=== PATIENT | female | born 1975 | race Caucasian/White ===

== ENCOUNTER 2016-12-07 12:16 | Observation (INO) ==
[2016-12-07 12:52] LABS: Basophils % 0.7 %; Eosinophils % 0.9 %; Hematocrit 42.5 % (35.3-44.9); Hemoglobin 14.8 g/dL (11.5-15.4); Immature Granulocytes % 0.2 % (0-4); Lymphocytes % 45.8 %; Mean Corpuscular HGB Conc 34.8 g/dL (31.6-35.5); Mean Corpuscular Hemoglobin 30.5 pg (28.0-33.3); Mean Corpuscular Volume 87.4 fL (83.0-100.0); Mean Platelet Volume 10.3 fL (9.4-12.4); Monocytes # 0.4 K/mcL (0.0-1.3); Monocytes % 9.3 %; Neutrophils # 1.9 K/mcL (1.6-8.9); Platelet Count 264 K/mcL (140-400); Red Blood Count 4.86 M/mcL (3.82-4.97); Red Cell Distribution Width 12.5 % (11.5-14.5); Segmented Neutrophils % 43.1 %
[2016-12-07 12:53] LABS: Bilirubin,Urine Negative (Negative); Blood,Urine Negative (Negative); Clarity,Urine Clear (Clear); Color,Urine Yellow (Yellow); Glucose,Urine (UA) Normal (Normal); Ketones,Urine Negative (Negative); Leukocyte Esterase,Urine Moderate (Negative); Nitrite,Urine Negative (Negative); Protein,Urine Negative (Neg-Trace); Specific Gravity,Urine 1.006 (1.010-1.025); Urobilinogen,Urine Normal (Normal)
[2016-12-07 12:54] LABS: Bacteria,Urine Few per hpf (None-Few); Hyaline Casts,Urine None Seen per lpf (None-Few); Squamous Epithelial Cell,Urine Many per lpf (None-Few); WBC,Urine 15-30 per hpf (0-3)
[2016-12-07 13:09] LABS: Alanine Aminotransferase 21 Units/L (0-55); Albumin 3.9 g/dL (3.5-5.0); Albumin/Globulin Ratio 1.4 (1.1-2.2); Alkaline Phosphatase 74 Units/L (38-126); Amylase 51 Units/L (25-125); Aspartate Amino Transferase 17 Units/L (5-34); BUN/Creatinine Ratio 7 (6-26); Bilirubin,Direct 0.2 mg/dL (0.0-0.5); Bilirubin,Indirect 0.5 mg/dL (0.0-1.2); Bilirubin,Total 0.7 mg/dL (0.2-1.2); Blood Urea Nitrogen 6 mg/dL (7-20); Calcium 9.2 mg/dL (8.6-10.8); Carbon Dioxide 22 mEq/L (19-29); Chloride 106 mEq/L (98-109); Globulin 2.8 g/dL (2.4-3.5); Glucose 97 mg/dL (70-99); Lipase 17 Units/L (8-78); Osmolality,Calculated 280 (280-300); Potassium 4.1 mEq/L (3.5-4.5); Sodium 136 mEq/L (136-145); Total Protein 6.7 g/dL (6.0-8.3); eGFR For African Americans > 60 (> 60); eGFR For Non-African Americans > 60 (> 60)
[2016-12-07] MEDS ORDERED: Ondansetron 4 MG/2 ML VIAL IV ONE (13:13)
[2016-12-07] MEDS ORDERED: *HR* HYDROmorphone (PF) 1 MG/ML SYRINGE IV ONE (13:13)
--- NOTE | 2016-12-07 13:16 | Emergency Department Note ---
Disposition Clinical Impression: Biliary colic, Intractable abdominal pain Disposition: Admitted As Inpatient Referrals: Navid Garg DO [Primary Care Provider] - Forms: Work/School Release, ED Satisfaction Letter Abdominal Pain HPI - General Chief Complaint: ED Abdominal Pain Stated Complaint: RUQ Pain Time Seen by Provider: 12/07/16 12:35 Source: patient Mode of arrival: ambulatory Limitations: no limitations Nursing Notes Reviewed: Yes Vital Signs Reviewed: Yes - History of Present Illness Pt Subjective Complaint: abdominal pain Onset (ago): day(s) (3) Consistency: intermittent Location: RUQ Pain Severity: severe Quality: sharp Radiation: none Improves with: nothing Worsens with: nothing Associated symptoms: Reports: nausea, anorexia. Denies: diarrhea, fever, chills , constipation, dysuria, hematemesis, hematochezia, melena, hematuria Treatments prior to arrival: OTC medications - Related Data Previous Rx's Medication Instructions Recorded Dicyclomine [Bentyl] 10 mg PO QID PRN #20 capsule 12/04/16 Promethazine [Phenergan] 25 mg PO Q6HR PRN #14 tablet 12/04/16 Tramadol HCl [Ultram] 50 mg PO QID PRN #14 tab 12/04/16 Allergies Allergy/AdvReac Type Severity Reaction Status Date / Time cephalexin [From Keflex] AdvReac Hives Verified 12/30/15 10:08 Penicillins AdvReac Hives Verified 12/30/15 10:07 All systems ED: reviewed and negative except as stated. Constitutional: Reports: fever, chills Gastrointestinal: Reports: abdominal pain, nausea Musculoskeletal: Denies: back pain Integumentary: Denies: rash Abdominal Pain PMH - Past Medical History Medical history: Reports: no medical history, other Female Surgical History: Reports: no surgical history Psychiatric history: Reports: anxiety, depression - Social History Smoking status: Former smoker Alcohol use: Reports: none, occasionally Drug use: Reports: none Physical Exam - General Limitations: no limitations General appearance: alert - Head Head exam: atraumatic, normocephalic, normal inspection - Eye Eye exam: Present: normal appearance, PERRL, EOMI - Expanded Eye Exam Pupils: Left: reactive - ENT ENT exam: normal exam, normal oropharynx, mucous membranes moist - Expanded ENT Exam External ear exam: Present: normal external inspection Mouth exam: Present: normal external inspection Teeth exam: Present: normal inspection Throat exam: Present: normal inspection - Neck Neck exam: Present: normal inspection, full ROM, trachea midline - Chest Chest inspection: Present: normal inspection, symmetric chest wall rise - Respiratory Respiratory exam: Present: normal lung sounds bilaterally - Cardiovascular Cardiovascular exam: Present: regular rate, normal rhythm, normal heart sounds - Abdominal Exam Abdominal exam: Present: soft, tenderness Abdominal tenderness: Present: RUQ, moderate - Extremities Exam Extremities exam: Present: normal inspection, full ROM. Absent: tenderness, pedal edema - Expanded Upper Extremity Exam Shoulder exam: Present: normal inspection, full ROM Arm exam: Present: normal inspection, full ROM Elbow exam: Present: normal inspection, full ROM Forearm/Wrist exam: Present: normal inspection, full ROM Hand exam: Present: normal inspection, full ROM Vascular exam: Normal: capillary refill, radial pulse - Expanded Lower Extremity Exam Hip/Pelvis exam: Present: normal inspection, full ROM Upper leg exam: Present: normal inspection, full ROM Knee exam: Present: normal inspection, full ROM Lower leg exam: Present: normal inspection, full ROM Ankle exam: Present: normal inspection, full ROM Foot/toe exam: Present: normal inspection, full ROM Neurovascular/Tendon exam: Absent: motor deficit, sensory deficit, tendon deficit - Back Exam Back exam: Present: normal inspection, full ROM. Absent: tenderness - Neurological Exam Neurological exam: Present: alert, oriented X3 - Expanded Neurological Exam Patient oriented to: Present: person, place, time Coma Scale Eye Opening: Spontaneous Coma Scale Motor Response: Obeys Commands Coma Scale Verbal Response: Oriented Coma Scale Total: 15 - Psychiatric Psychiatric exam: Present: normal affect, normal mood - Skin Skin exam: Present: warm, dry, intact, normal color Course Vital Signs Temperature 98.2 F 12/07/16 12:17 Pulse Rate 81 12/07/16 12:17 Respiratory Rate 16 12/07/16 12:17 Blood Pressure 120/87 12/07/16 12:17 O2 Sat by Pulse Oximetry 98 12/07/16 12:17 Temperature 98.2 F 12/07/16 12:17 Pulse Rate 60 12/07/16 14:23 Respiratory Rate 14 12/07/16 14:23 Blood Pressure 112/78 12/07/16 14:23 O2 Sat by Pulse Oximetry 95 12/07/16 14:23 Oxygen Delivery Oxygen Delivery Room Air Abdominal Pain - MDM Narrative Medical decision making narrative: admit Dr. Cantu service for further management - Differential Diagnosis Differential Diagnosis: Likely: abdominal pain mimics ectopic , acute appendicitis, constipation, colonic obstruction, diverticulitis, diverticulosis , gastroenteritis, ischemic bowel, pancreatitis, small bowel obstruction - Medical Records Medical records reviewed: Yes I reviewed the patient's medical records. - Lab Data Lab results reviewed: Yes I reviewed the patient's lab results. Result diagrams: 12/07/16 12:44 12/07/16 12:44 Lab Results 12/07/16 12/07/16 12/07/16 Range/Units 12:26 12:44 12:44 WBC 4.3 (4.3-11.1) K/mcL RBC 4.86 (3.82-4.97) M/mcL Hgb 14.8 (11.5-15.4) g/dL Hct 42.5 (35.3-44.9) % MCV 87.4 (83.0-100.0) fL MCH 30.5 (28.0-33.3) pg MCHC 34.8 (31.6-35.5) g/dL RDW 12.5 (11.5-14.5) % Plt Count 264 (140-400) K/mcL MPV 10.3 (9.4-12.4) fL Immature Gran % 0.2 (0-4) % Seg Neutrophils % 43.1 % Lymphocytes % 45.8 % Monocytes % 9.3 % Eosinophils % 0.9 % Basophils % 0.7 % Neutrophils # 1.9 (1.6-8.9) K/mcL Lymphocytes # 2.0 (0.6-4.6) K/mcL Monocytes # 0.4 (0.0-1.3) K/mcL Eosinophils # 0.0 (0.0-0.6) K/mcL Basophils # 0.0 (0.0-0.2) K/mcL Sodium 136 (136-145) mEq/L Potassium 4.1 (3.5-4.5) mEq/L Chloride 106 (98-109) mEq/L Carbon Dioxide 22 (19-29) mEq/L BUN 6 L (7-20) mg/dL Creatinine 0.83 (0.57-1.11) mg/dL Est GFR ( Amer) > 60 (> 60) Est GFR (Non-Af Amer) > 60 (> 60) BUN/Creatinine Ratio 7 (6-26) Glucose 97 (70-99) mg/dL Calculated Osmolality 280 (280-300) Calcium 9.2 (8.6-10.8) mg/dL Total Bilirubin 0.7 (0.2-1.2) mg/dL Direct Bilirubin 0.2 (0.0-0.5) mg/dL Indirect Bilirubin 0.5 (0.0-1.2) mg/dL AST 17 (5-34) Units/L ALT 21 (0-55) Units/L Alkaline Phosphatase 74 (38-126) Units/L Serum Total Protein 6.7 (6.0-8.3) g/dL Albumin 3.9 (3.5-5.0) g/dL Globulin 2.8 (2.4-3.5) g/dL Albumin/Globulin Ratio 1.4 (1.1-2.2) Amylase 51 (25-125) Units/L Lipase 17 (8-78) Units/L Urine Color Yellow (Yellow) Urine Clarity Clear (Clear) Urine pH 7.0 (5.0-8.0) pH Units Ur Specific [place] 1.006 L (1.010-1.025) Urine Protein Negative (Neg-Trace) mg/dL Urine Glucose (UA) Normal (Normal) mg/dL Urine Ketones Negative (Negative) mg/dL Urine Blood Negative (Negative) Urine Nitrite Negative (Negative) Urine Bilirubin Negative (Negative) Urine Urobilinogen Normal (Normal) mg/dL Ur Leukocyte Esterase Moderate H (Negative) Urine Microscopic RBC 3-5 H (0-3) per hpf Urine Microscopic WBC 15-30 H (0-3) per hpf Ur Squamous Epith Cells Many H (None-Few) per lpf Urine Bacteria Few (None-Few) per hpf Hyaline Casts None Seen (None-Few) per lpf Ur Culture Indicated? YES A (NO) - Radiology Data Radiology results reviewed: Yes I reviewed the patient's radiology results.
--- NOTE | 2016-12-07 17:17 | General Surg History&Physical ---
<Ismael Beavers - Last Filed: 12/07/16 17:40> Date of Encounter: 12/07/16 Time of Encounter: 17:17 Assessment and Plan (1) Biliary colic Current Visit: Yes Status: Acute See plan above. (2) Right upper quadrant abdominal pain Current Visit: No Status: Acute NPO diet IV flids at 125ml/hr Started PPI therapy. Continue antiemetics Supportive care/pain control HIDA scan in 2014 with EF of 79%, consider repeat scan. gallbladder US negative for acute cholecystitis. (3) GERD (gastroesophageal reflux disease) Current Visit: Yes Status: Acute PPI therapy started. (4) DVT prophylaxis Current Visit: Yes Status: Acute Ambulate TID. History of Present Illness Chief complaint: RUQ pain HPI: Ms. Parnell is a 41 year old female that presented to the ED for worsening RUQ pain. Patient states she has dealt with mild pain and irritation for approx 6 months, noting the last 3 days as severe pain radiating around R flank. Pain is worsened with food, movement, or palpation. Fatty/greasy foods seem to be a trigger, along with seeds and an assortment of whole grains. Patient states she get frequent heartburn, that has been worsening; she denies any medications for the reflux, typically waits for the burning to stop. She notes history of L shoulder pain for months as well, though none currently. Patient denies any cardiovascular history. She admits to nausea, vomiting (denies any blood, notes yellow/green appearance), headaches, dizziness, presyncopal episodes (hot, sweating,dizzy), change in stool (kirsten colored Friday, dark today), belching , and fever (100.9 at home). Denies any red blood in stool, denies diarrhea or constipation, denies chest pain or shortness of breath. Also seen at [place] [facility] on 12/04/16 for same complaint. Gallbladder US today showed normal GB without wall thickening or stranding, Common bile duct 2mm. HIDA scan 03/01/15 with EF 79% Pertinent family history of two maternal uncles with pancreatic cancer, mother is noted to have had many benign polyps removed. Past Med Surg Social Fam HX - Past Medical History Source: patient Medical history: no medical history, GERD, other Psychiatric history: anxiety, depression - Past Surgical History Surgical History: other (uterine ablation) - Social History Smoking Status: Former smoker (20+ years ago) Smokeless Tobacco Status: No Alcohol use: rarely Drug use: none Current living situation: Home, With Family - Family History Maternal Hx Family Cancer: Yes (two maternal uncles with pancreatic cancer.) Mother Hx Family Cancer: Yes (melanoma) Medications and Allergies OxyCODONE/APAP 5/325 [Percocet 5/325 MG] 1 each PO Q6HR PRN #20 tablet 12/08/16 [Rx] Allergies cephalexin [From Keflex] Allergy (Severe, Verified 12/07/16 16:31) Anaphylaxis Penicillins Allergy (Severe, Verified 12/07/16 16:31) Anaphylaxis Review of Systems All systems PM: A 10-system review of systems was performed and is negative for pertinent findings except as documented above in the HPI. - Constitutional anorexia, chills, fever(s) (100.9 at home), headache(s) - EENT Nose, mouth and throat: dizziness, no dysphagia - Cardiovascular radiating jaw, neck or arm pain (L arm pain (none currently)), lightheadedness, no chest pain, no dyspnea, no palpitations - Respiratory no cough, no dyspnea - Gastrointestinal abdominal pain, belching, heartburn, nausea, vomiting (yellow/green), other ( States stool on Friday was kirsten colored, today was very dark (unsure if black ).), no coffee ground emesis, no constipation, no diarrhea, no hematemesis - Genitourinary Genitourinary: flank pain (R flank), no dysuria, no hematuria - Musculoskeletal no back pain, no muscle weakness - Integumentary no erythema - Neurological dizziness, headache(s), syncope (pre-syncopal episodes.) - Psychiatric no confusion - Endocrine flushing General Surgery Exam Initial Vital Signs Temp Pulse Resp BP Pulse Ox 98.2 F 81 16 120/87 98 12/07/16 12:12/07/16 12:12/07/16 12:17 12/07/16 12:12/07/16 12:17 - General physical appearance well developed, well nourished, no distress - Eyes normal ocular movement - ENT normal mucosa, atraumatic, normocephalic - Neck trachea midline - Respiratory normal respiratory effort, clear to auscultation - Cardiovascular Cardiovascular exam: Present: RRR - Abdomen Abdomen general surgery: Present: bowel sounds present (hypoactive), soft, tender (RUQ, R flank). Absent: distended, guarding, rigid - Integumentary Integumentary general surgery: Present: warm and dry, no abnormal pigmentation - Neurologic Present: CN 2-12 grossly intact - Psychiatric Psychiatric general surgery: Present: A&Ox3, speech is normal, memory intact Results - Labs 12/07/16 12:44 12/07/16 12:44 Abnormal lab results BUN 6 mg/dL (7-20) L 12/07/16 12:44 Ur Specific [place] 1.006 (1.010-1.025) L 12/07/16 12:26 Ur Leukocyte Esterase Moderate (Negative) H 12/07/16 12:26 Urine Microscopic RBC 3-5 per hpf (0-3) H 12/07/16 12:26 Urine Microscopic WBC 15-30 per hpf (0-3) H 12/07/16 12:26 Ur Squamous Epith Cells Many per lpf (None-Few) H 12/07/16 12:26 Ur Culture Indicated? YES (NO) A 12/07/16 12:26 Diabetes panel 12/07/16 Range/Units 12:44 Sodium 136 (136-145) mEq/L Potassium 4.1 (3.5-4.5) mEq/L Chloride 106 (98-109) mEq/L Carbon Dioxide 22 (19-29) mEq/L BUN 6 L (7-20) mg/dL Creatinine 0.83 (0.57-1.11) mg/dL Glucose 97 (70-99) mg/dL Calcium 9.2 (8.6-10.8) mg/dL AST 17 (5-34) Units/L ALT 21 (0-55) Units/L Alkaline Phosphatase 74 (38-126) Units/L Albumin 3.9 (3.5-5.0) g/dL Calcium panel 12/07/16 Range/Units 12:44 Calcium 9.2 (8.6-10.8) mg/dL Albumin 3.9 (3.5-5.0) g/dL Pituitary panel 12/07/16 Range/Units 12:44 Sodium 136 (136-145) mEq/L Potassium 4.1 (3.5-4.5) mEq/L Chloride 106 (98-109) mEq/L Carbon Dioxide 22 (19-29) mEq/L BUN 6 L (7-20) mg/dL Creatinine 0.83 (0.57-1.11) mg/dL Glucose 97 (70-99) mg/dL Calcium 9.2 (8.6-10.8) mg/dL Adrenal panel 12/07/16 Range/Units 12:44 Sodium 136 (136-145) mEq/L Potassium 4.1 (3.5-4.5) mEq/L Chloride 106 (98-109) mEq/L Carbon Dioxide 22 (19-29) mEq/L BUN 6 L (7-20) mg/dL Creatinine 0.83 (0.57-1.11) mg/dL Glucose 97 (70-99) mg/dL Calcium 9.2 (8.6-10.8) mg/dL Total Bilirubin 0.7 (0.2-1.2) mg/dL AST 17 (5-34) Units/L ALT 21 (0-55) Units/L Alkaline Phosphatase 74 (38-126) Units/L Albumin 3.9 (3.5-5.0) g/dL All other labs normal. <Billy Cantu E - Last Filed: 12/08/16 14:44> Assessment and Plan (1) Intractable abdominal pain Current Visit: Yes Status: Acute The patient has biliary dyskinesia. Plan for Surgery today. Risks were explained and she agrees to proceed. The assessment and plan as outlined above was discussed with the patient and/or family members who expressed understanding and agreement. All questions were answered. History of Present Illness HPI: Ms. Parnell is a 41 year old female Review of Systems All systems PM: A 10-system review of systems was performed and is negative for pertinent findings except as documented above in the HPI. General Surgery Exam Initial Vital Signs Temp Pulse Resp BP Pulse Ox 98.2 F 81 16 120/87 98 12/07/16 12:17 12/07/16 12:17 12/07/16 12:17 12/07/16 12:17 12/07/16 12:17 Results - Labs 12/08/16 06:42 12/08/16 06:42 Abnormal lab results Chloride 111 mEq/L (98-109) H 12/08/16 06:42 Calcium 8.5 mg/dL (8.6-10.8) L 12/08/16 06:42 Ur Specific [place] 1.006 (1.010-1.025) L 12/07/16 12:26 Ur Leukocyte Esterase Moderate (Negative) H 12/07/16 12:26 Urine Microscopic RBC 3-5 per hpf (0-3) H 12/07/16 12:26 Urine Microscopic WBC 15-30 per hpf (0-3) H 12/07/16 12:26 Ur Squamous Epith Cells Many per lpf (None-Few) H 12/07/16 12:26 Ur Culture Indicated? YES (NO) A 12/07/16 12:26 Diabetes panel 12/08/16 Range/Units 06:42 Sodium 139 (136-145) mEq/L Potassium 4.2 (3.5-4.5) mEq/L Chloride 111 H (98-109) mEq/L Carbon Dioxide 21 (19-29) mEq/L BUN 8 (7-20) mg/dL Creatinine 0.77 (0.57-1.11) mg/dL Glucose 83 (70-99) mg/dL Calcium 8.5 L (8.6-10.8) mg/dL Calcium panel 12/08/16 Range/Units 06:42 Calcium 8.5 L (8.6-10.8) mg/dL Pituitary panel 12/08/16 Range/Units 06:42 Sodium 139 (136-145) mEq/L Potassium 4.2 (3.5-4.5) mEq/L Chloride 111 H (98-109) mEq/L Carbon Dioxide 21 (19-29) mEq/L BUN 8 (7-20) mg/dL Creatinine 0.77 (0.57-1.11) mg/dL Glucose 83 (70-99) mg/dL Calcium 8.5 L (8.6-10.8) mg/dL Adrenal panel 12/08/16 Range/Units 06:42 Sodium 139 (136-145) mEq/L Potassium 4.2 (3.5-4.5) mEq/L Chloride 111 H (98-109) mEq/L Carbon Dioxide 21 (19-29) mEq/L BUN 8 (7-20) mg/dL Creatinine 0.77 (0.57-1.11) mg/dL Glucose 83 (70-99) mg/dL Calcium 8.5 L (8.6-10.8) mg/dL All other labs normal.
[2016-12-07] MEDS ORDERED: Naloxone 0.4 MG/ML INJ IVP PRN (17:29)
[2016-12-07] MEDS ORDERED: *HR* HYDROmorphone (PF) 1 MG/ML SYRINGE IVP PRN (17:29)
[2016-12-07] MEDS ORDERED: Ondansetron 4 MG/2 ML VIAL IVP PRN (17:29)
[2016-12-07] MEDS ORDERED: Pantoprazole 40 MG VIAL IVP ONE (17:38)
[2016-12-07] MEDS: 0.9 % Sodium Chloride 1,000 ML IVC SCH (18:26)
[2016-12-07] MEDS: Ketorolac 30 MG/ML VIAL IVP PRN (18:26)
[2016-12-08] MEDS: 0.9 % Sodium Chloride 1,000 ML IVC SCH ×2 (02:41→10:14)
[2016-12-08 07:33] LABS: Basophils % 0.7 %; Eosinophils % 0.9 %; Hematocrit 40.8 % (35.3-44.9); Hemoglobin 13.6 g/dL (11.5-15.4); Immature Granulocytes % 0.2 % (0-4); Lymphocytes % 45.4 %; Mean Corpuscular HGB Conc 33.3 g/dL (31.6-35.5); Mean Corpuscular Hemoglobin 30.1 pg (28.0-33.3); Mean Corpuscular Volume 90.3 fL (83.0-100.0); Mean Platelet Volume 10.6 fL (9.4-12.4); Monocytes # 0.4 K/mcL (0.0-1.3); Neutrophils # 1.9 K/mcL (1.6-8.9); Platelet Count 240 K/mcL (140-400); Red Blood Count 4.52 M/mcL (3.82-4.97); Red Cell Distribution Width 12.4 % (11.5-14.5); Segmented Neutrophils % 43.8 %
[2016-12-08 07:45] LABS: BUN/Creatinine Ratio 10 (6-26); Blood Urea Nitrogen 8 mg/dL (7-20); Calcium 8.5 mg/dL (8.6-10.8); Carbon Dioxide 21 mEq/L (19-29); Chloride 111 mEq/L (98-109); Glucose 83 mg/dL (70-99); Osmolality,Calculated 285 (280-300); Potassium 4.2 mEq/L (3.5-4.5); Sodium 139 mEq/L (136-145); eGFR For African Americans > 60 (> 60); eGFR For Non-African Americans > 60 (> 60)
[2016-12-08] MEDS ORDERED: Pantoprazole 40 MG VIAL IVP SCH (09:00)
[2016-12-08] MEDS ORDERED: Clindamycin 900 MG/50 ML 900 MG/50 ML IV.SOLN IVPB ONE (09:25)
[2016-12-08] MEDS: Ketorolac 30 MG/ML VIAL IVP PRN (10:19)
[2016-12-08] MEDS ORDERED: *HR* Midazolam HCl 2 MG/2 ML VIAL ONE (11:18)
[2016-12-08] MEDS ORDERED: *HR* Rocuronium Bromide 50 MG/5 ML VIAL ONE (11:19)
[2016-12-08] MEDS ORDERED: *HR* Succinylcholine 200 MG/10 ML VIAL IVP ONE (11:19)
[2016-12-08] MEDS ORDERED: *HR* FentaNYL (PF) 100 MCG/2 ML VIAL ONE (11:19)
[2016-12-08] MEDS ORDERED: Lidocaine -MPF 2% 2 ML VIAL ONE (11:19)
[2016-12-08] MEDS ORDERED: *HR* Propofol 200 MG/20 ML VIAL IVP ONE (11:19)
--- NOTE | 2016-12-08 11:26 | Anesthesia Evaluation PreOp ---
Date of Encounter: 12/08/16 Time of Encounter: 11:23 - Past History Planned Operation: Laparoscopic Cholecystectomy Cardiac History: Denies any Significant Hx Pulmonary History: Former smoker (quit 20 years ago, smoked for 2 years), Snore STATISTICAL ASSISTANT History: Denies Any Significant HX Other Medical History: Denies Any Significant HX Anesthesia History: No Prior Anesthetic Complications, Past Anesthesia Test: Negative (12/08/2016) Alcohol Use: rarely Drug use: none Medications and Allergies Sulfamethoxazole/Trimeth DS [Bactrim DS] 1 tab PO BID 12/07/16 [History] Allergies cephalexin [From Keflex] Allergy (Severe, Verified 12/07/16 16:31) Anaphylaxis Penicillins Allergy (Severe, Verified 12/07/16 16:31) Anaphylaxis - Meds/Allergy Pre-op Review Medications Reviewed: Yes Allergies Reviewed: Yes Beta Blockers on Current Med List: No Anesthesia Results - Labs 12/08/16 06:42 12/08/16 06:42 Anesthesia Exam O2 Sat Height 1.68 m Weight 88.45 kg Weight 88.451 kg O2 Sat by Pulse Oximetry 95 O2 Sat by Pulse Oximetry 95 O2 Sat by Pulse Oximetry 97 O2 Sat by Pulse Oximetry 98 O2 Sat by Pulse Oximetry 95 O2 Sat by Pulse Oximetry 97 O2 Sat by Pulse Oximetry 98 Vital Signs Temp Pulse Resp BP Pulse Ox 98.2 F 81 16 120/87 98 12/07/16 12:17 12/07/16 12:17 12/07/16 12:17 12/07/16 12:17 12/07/16 12:17 Height: 5'6''/1.68 m Weight: 194 lbs/88.45 kg NPO (# of Hours): 8 Pain Scale: 0 Pain Scale Used: Numeric (1 - 10) - HEENT Pupil (Motor): EOMI Mallampati: II Teeth: Normal (chipped lower right molar) Oral Opening: Greater than 3 - STATISTICAL ASSISTANT LOC: Oriented STATISTICAL ASSISTANT Motor: Normal RUE, Normal LUE, Normal RLE, Normal LLE, Normal Face STATISTICAL ASSISTANT Sensory: Normal: RUE, LUE, RLE, LLE, Face - Cardiac Rhythm: Regular Murmur: None - Pulmonary Breath Sounds: bilateral Clear Respiratory Effort: Symmetrical Anesthesia Assess/Plan ASA Score: 2 Modified Saxon Scale for Level of Consciousness: Cooperative, oriented, and tranquil Anesthetic Plan: General Monitoring Plan: Standard Monitors Recovery Plan: PACU
[2016-12-08] MEDS ORDERED: *HR* HYDROmorphone (PF) 1 MG/ML SYRINGE IVP PRN (11:38)
[2016-12-08] MEDS ORDERED: Dexamethasone 4 MG/ML VIAL ONE (12:16)
[2016-12-08] MEDS ORDERED: Ondansetron 4 MG/2 ML VIAL ONE ×2 (12:16→13:13)
[2016-12-08] MEDS ORDERED: *HR* Morphine 10 MG/ML VIAL ONE (12:18)
[2016-12-08] MEDS ORDERED: Neostigmine Methylsulfate 3 MG/3 ML SYRINGE ONE (12:33)
--- NOTE | 2016-12-08 12:42 | Operative Note ---
Date of procedure: 12/08/16 Pre-op diagnosis: Biliary dyskinesia Post-op diagnosis: same Procedure: Laparoscopic cholecystectomy with cholangiogram Anesthesia: ABENA Surgeon: Billy Cantu Estimated blood loss (cc): 10 Specimen: Gallbladder Condition: stable Disposition: same day Procedure in Detail: After informed consent this patient was taken the operating room placed supine position. After adequate sedation anesthesia the abdomen was prepped and draped. A proper timeout was performed. Two towel clamps are placed at the umbilicus and a Veres needle was inserted into the abdomen. A 5 mm incision was made at the umbilicus. A 12 mm incision was made in the subxiphoid region. Two 5 mm incisions were made in the right upper quadrant that were 4 finger breadths and 6 finger breadths below the costal margin. The gallbladder was identified, retracted anteriorly and cephalad, and the infundibulum was skeletonized. The cystic duct was easily identified and was dissected free. A ductotomy was created in the cystic duct. A taut catheter was placed within the cystic duct and clipped. A cholangiogram was performed. Contrast filled the cystic duct, common hepatic duct, hepatic radicles, and the distal common bile duct. There was flow of contrast into the duodenum. Once this was confirmed the clippers removed, the taut catheter was removed as well, and the cystic duct was clipped distally. The cystic duct was then transected with scissors. The gallbladder was resected off the liver surface. There was excellent hemostasis. The gallbladder was then retrieved through the 12 mm cannula site. At this point the abdomen was suctioned dry and the pneumoperitoneum was then evacuated. All ports were removed. The 12 mm cannula site was closed with an 0 Vicryl suture in [id number] fashion. The skin was closed with 4-0 Vicryl suture. Dermabond was placed as well. All instrument counts and needle counts are correct in the operation. She tolerated the procedure well and was transferred to the PACU in stable condition.
[2016-12-08] MEDS ORDERED: Ondansetron 4 MG/2 ML VIAL IVP ONE (13:03)
--- NOTE | 2016-12-08 13:27 | Anesthesia Evaluation Post Op ---
Date of Encounter: 12/08/16 Time of Encounter: 13:27 - Vital Signs Vital Signs: Vital Signs/O2 Sat, Most Current Temp Pulse Resp BP Pulse Ox 97.6 F 60 16 116/70 96 12/08/16 12:55 12/08/16 13:15 12/08/16 13:15 12/08/16 13:15 12/08/16 13:15 - Lungs Lungs: Clear Ascult./Percussion - Airway Airway: Non-obstructed - Cardiovascular Regular Rate - Mental Status Mental Status: Alert & Oriented, Answers Appropriately - Pain Pain Scale: 3 Pain Scale used: Numeric (1 - 10) - Nausea Vomiting Nausea Vomiting: Responds to treatment with IV Meds - Hydration Hydration: NPO, Has not voided - Discharge PostOp Status: Transfer Patient to floor
[2016-12-08] MEDS ORDERED: 0.9 % Sodium Chloride 1,000 ML IVC SCH (13:38)
[2016-12-08] MEDS ORDERED: Naloxone 0.4 MG/ML INJ IVP PRN (13:38)
[2016-12-08] MEDS ORDERED: *HR* OxyCODONE/APAP 5/325 TABLET PO PRN (13:38)
[2016-12-08] MEDS ORDERED: Ondansetron 4 MG/2 ML VIAL IVP PRN (13:38)
[2016-12-08] MEDS ORDERED: Ketorolac 30 MG/ML VIAL IVP PRN (13:38)
--- NOTE | 2016-12-08 14:23 | Discharge Summary ---
Date of Encounter: 12/08/16 Time of Encounter: 17:19 - Discharge Diagnosis (1) Biliary dyskinesia Priority: Primary Status: Acute (2) Right upper quadrant abdominal pain Priority: Secondary Status: Acute (3) GERD (gastroesophageal reflux disease) Priority: Secondary Status: Acute Qualifiers: Esophagitis presence: esophagitis presence not specified Qualified Code(s) : K21.9 - Gastro-esophageal reflux disease without esophagitis - Discharge Medications Prescriptions: OxyCODONE/APAP 5/325 [Percocet 5/325 MG] 1 each PO Q6HR PRN #20 tablet PRN Reason: Pain Home Medications: OxyCODONE/APAP 5/325 [Percocet 5/325 MG] 1 each PO Q6HR PRN #20 tablet 12/08/16 [Rx] Allergies/Adverse Reactions: Allergies cephalexin [From Keflex] Allergy (Severe, Verified 12/07/16 16:31) Anaphylaxis Penicillins Allergy (Severe, Verified 12/07/16 16:31) Anaphylaxis General Surgery Exam Initial Vital Signs Temp Pulse Resp BP Pulse Ox 98.2 F 81 16 120/87 98 12/07/16 12:17 12/07/16 12:17 12/07/16 12:17 12/07/16 12:17 12/07/16 12:17 - General physical appearance well developed, well nourished, no distress - Eyes normal ocular movement - ENT normal mucosa, atraumatic, normocephalic - Neck trachea midline - Respiratory normal respiratory effort, clear to auscultation - Cardiovascular Cardiovascular exam: Present: RRR - Abdomen Abdomen general surgery: Present: bowel sounds present, soft, tender (minimally , expected post operative) - Incision Incision: Present: clean and dry, intact - Integumentary Integumentary general surgery: Present: warm and dry, no abnormal pigmentation - Neurologic Present: CN 2-12 grossly intact - Psychiatric Psychiatric general surgery: Present: A&Ox3, speech is normal, memory intact Date of admission: 12/07/16 16:45 Primary care physician: Navid Garg DO Discharging clinician: Billy Cantu Anticipated date of discharge: 12/08/16 - Patient Status Disposition: Home, Self-Care Condition: Good Functional capacity at discharge: independent ambulation Overall status at discharge: patient is progressing back to baseline - Discharge Instructions Follow Up With: Navid Garg DO [Primary Care Provider] - Additional Instructions: #1 may shower, no tub bath for 2 weeks #2 wash incisions with soap and water and pat dry daily #3 no lifting, pushing, pulling more than 15 pounds for the next 2 weeks #4 no driving until off narcotics for 24 hours and able to safely react in the car #5 may climb stairs Follow up with outpatient surgery in 2 weeks. - Diet and Activity Activity: increase activity as tolerated Diet: advance to your usual diet - Hospital Course Hospital course: Ms. Parnell is a 41 year old female that presented to the ED for worsening RUQ pain. Patient states she had dealt with mild pain and irritation for approx 6 months, noting the last 3 days as severe pain radiating around R flank. Pain worsened with food, movement, or palpation. Fatty/greasy foods seemed to be a trigger, along with seeds and an assortment of whole grains. Patient stated she got frequent heartburn, that has been worsening; she denied taking any medications for the reflux, typically waited for the burning to stop. She noted history of L shoulder pain for months as well, though none on admission. Patient denies any cardiovascular history. She admits to nausea, vomiting ( denied any blood, noted yellow/green appearance), headaches, dizziness, presyncopal episodes (hot,sweating,dizzy), change in stool (kirsten colored Friday, dark today), belching, and fever (100.9 at home). Denied any red blood in stool, diarrhea or constipation, chest pain or shortness of breath. Seen at [facility] on 12/04/16 for same complaint. Gallbladder US 12/07/16 showed normal GB without wall thickening or stranding, Common bile duct 2mm. HIDA scan 03/01/15 with EF 79% Pertinent family history of two maternal uncles with pancreatic cancer, mother is noted to have had many benign polyps. Patient underwent cholecystectomy with cholangiogram by Dr. Cantu on 12/08/16. Patient states overall pain and appetite improved since procedure. Incision C/D/ I, abdomen minimally tender to palpation. Patient feels comfortable going home. Will begin discharge planning to home today. Plan for outpatient follow up in 2 weeks. - Time Spent with Patient Total time spent providing and/or coordinating discharge services: Less than 30 minutes Labs on day of discharge: Labs from last 24 hours 12/08/16 12/08/16 12/08/16 11:15 06:42 06:42 WBC 4.3 RBC 4.52 Hgb 13.6 Hct 40.8 MCV 90.3 MCH 30.1 MCHC 33.3 RDW 12.4 Plt Count 240 MPV 10.6 Immature Gran % 0.2 Seg Neutrophils % 43.8 Lymphocytes % 45.4 Monocytes % 9.0 Eosinophils % 0.9 Basophils % 0.7 Neutrophils # 1.9 Lymphocytes # 2.0 Monocytes # 0.4 Eosinophils # 0.0 Basophils # 0.0 Sodium 139 Potassium 4.2 Chloride 111 H Carbon Dioxide 21 BUN 8 Creatinine 0.77 Est GFR ( Amer) > 60 Est GFR (Non-Af Amer) > 60 BUN/Creatinine Ratio 10 Glucose 83 POC Glucose Calculated Osmolality 285 Calcium 8.5 L Urine Test Negative 12/08/16 12/08/16 05:30 00:13 WBC RBC Hgb Hct MCV MCH MCHC RDW Plt Count MPV Immature Gran % Seg Neutrophils % Lymphocytes % Monocytes % Eosinophils % Basophils % Neutrophils # Lymphocytes # Monocytes # Eosinophils # Basophils # Sodium Potassium Chloride Carbon Dioxide BUN Creatinine Est GFR ( Amer) Est GFR (Non-Af Amer) BUN/Creatinine Ratio Glucose POC Glucose 75 84 Calculated Osmolality Calcium Urine Test - Impressions ITS Impressions Cholangiogram,Operative 12/08/16 00:00 IMPRESSION: Negative intraoperative cholangiogram. Please see the intraoperative note for complete details. D/ / Kurt Limon MD / Kurt Limon MD Interpreting Provider: Kurt Limon MD
[2016-12-08 16:24] VITALS: BP 112/77
[2016-12-09] MEDS ORDERED: Pantoprazole 40 MG VIAL IVP SCH (09:00)
== END 2016-12-08 17:50 | disposition home or self-care (01) ==
LOC: EMEROO 12:16 → 3ANU 12:16
PROVIDERS: ADMIT Surgery; ATTEND Surgery